=== PATIENT | female | born 1985 | race Caucasian/White ===

== ENCOUNTER 2017-05-30 21:53 | Emergency (ER) | payer SELFPAY ==
[2017-05-30 21:54] VITALS: BMI 27.6
[2017-05-31] MEDS ORDERED: Aspirin 325 mg EC Tablets PO STA (00:14)
[2017-05-31] MEDS ORDERED: Aspirin 325 mg EC Tablets PO ONE (00:29)
[2017-05-31 00:36] LABS: BASO % 0.5 % (0.0-2.0); EOS # 0.1 K/uL (0.0-0.7); EOS % 1.3 % (0.0-4.0); HEMATOCRIT 39.2 % (34.0-47.0); LYMPH % 23.9 % (20.0-40.0); MEAN CELL VOLUME 92.6 fL (81.0-99.0); MEAN CORPUSCULAR HEMOGLOBIN 31.2 pg (27.0-31.0); MEAN CORPUSCULAR HGB CONC 33.7 g/dL (33.0-37.0); MEAN PLATELET VOLUME 10.7 fL (7.2-11.7); MONO # 0.8 K/uL (0.0-0.8); MONO % 9.1 % (0.0-10.0); RED CELL DISTRIBUTION WIDTH 13.5 % (11.5-14.5); WHITE BLOOD COUNT 8.4 K/uL (4.8-10.8)
[2017-05-31 00:47] LABS: RBC URINE 2 /hpf (0-3); URINE BILIRUBIN NEGATIVE (NEGATIVE); URINE BLOOD TRACE (NEGATIVE); URINE COLOR Yellow (YELLOW); URINE GLUCOSE (UA) NORMAL (Normal); URINE KETONE NEGATIVE (NEGATIVE); URINE LEUKOCYTE ESTERASE TRACE Leu/uL (Negative); URINE PROTEIN NEGATIVE (NEGATIVE); URINE UROBILINOGEN NORMAL mg/dL (0.2-1.0); WBC URINE 1 /hpf (0-5)
[2017-05-31 00:58] VITALS: PULSE 68; RESP 18; O2SAT 100
[2017-05-31 01:06] LABS: ALB/GLOB RATIO 1.7 (1.0-2.1); ALKALINE PHOSPHATASE 62 U/L (38-126); ALT/SGPT 30 U/L (9-52); AST/SGOT 24 U/L (14-36); BILIRUBIN,TOTAL 0.7 mg/dL (0.2-1.3); BLOOD UREA NITROGEN 14 mg/dL (7-17); CALCIUM 9.3 mg/dl (8.6-10.4); CARBON DIOXIDE 25 mmol/L (22-30); CHLORIDE 100 mmol/L (98-107); GFR AFRICAN-AMERICAN > 60; GLUCOSE,RANDOM 77 mg/dL (65-105); POTASSIUM 3.5 mmol/L (3.6-5.2); SODIUM 136 mmol/L (132-148)
--- NOTE | 2017-05-31 01:36 | C.PDOC ---
History Of Present Illness 31 y/o female with a hx of Lupus and HTN (currently taking BP meds), c/o sharp left chest wall pain that began at 16:00 today. Pain is non-radiating but notes feeling the same pain at her back. Pain worsens when drinking water and deep breathing. In 2014, patient reports having DC like symptoms and was admitted with work up done. Her cardiac cath was normal. Denies SOB, dizziness, headache , lightheadedness, or lower leg swelling. Time Seen by Provider: 05/30/17 23:49 Chief Complaint (Nursing): Chest Pain History Per: Patient History/Exam Limitations: no limitations Onset/Duration Of Symptoms: Hrs Current Symptoms Are (Timing): Still Present Severity: Mild Quality: Sharp Exacerbating Factors: Deep Breathing, Other (Drinking water) Recent travel outside of the [place]: No Additional History Per: Patient Past Medical History Reviewed: Historical Data, Nursing Documentation, Vital Signs Vital Signs: Last Vital Signs Temp 97.5 F L 05/31/17 00:57 Pulse 68 05/31/17 00:57 Resp 18 05/31/17 00:57 BP 143/86 05/31/17 00:57 Pulse Ox 100 05/31/17 01:39 - Medical History PMH: HTN - [facility] CORONAR ARTERIOGR-2 CATH (11/15/14) LEFT HEART CARDIAC CATH (11/15/14) LT HEART ANGIOCARDIOGRAM (11/15/14) Family History: States: Hypertension (mother) - Social History Hx Tobacco Use: No Hx Alcohol Use: Yes (socially) Hx Substance Use: No - Immunization History Hx Tetanus Toxoid Vaccination: No Hx Influenza Vaccination: No Hx Pneumococcal Vaccination: No Review Of Systems Except As Marked, All Systems Reviewed And Found Negative. Constitutional: Negative for: Sweats Cardiovascular: Positive for: Chest Pain. Negative for: Palpitations, Light Headedness Respiratory: Negative for: Shortness of Breath Musculoskeletal: Positive for: Back Pain. Negative for: Leg Pain, Foot Pain Neurological: Negative for: Headache, Dizziness Physical Exam - Physical Exam Appears: Non-toxic, No Acute Distress Skin: Warm, Dry Head: Atraumatic, Normacephalic Chest: Symmetrical, Tenderness (Reproducible mid-sternal chest pain, intercostal ) Cardiovascular: Rhythm Regular, No Murmur Respiratory: Normal Breath Sounds, No Rales, No Rhonchi, No Wheezing Gastrointestinal/Abdominal: Soft, No Tenderness Back: Paraspinal Tenderness (Posterior clavicular tenderness and muscle spasm) Neurological/Psych: Oriented x3 ED Course And Treatment - Laboratory Results Result Diagrams: 05/31/17 00:31 05/31/17 00:31 O2 Sat by Pulse Oximetry: 100 (RA) Pulse Ox Interpretation: Normal Medical Decision Making Medical Decision Making: Plans: * EKG * Blood labs * Ecotrin * IV fluids * UA Disposition Counseled Patient/Family Regarding: Studies Performed, Diagnosis, Need For Followup, Rx Given - Disposition Disposition: HOME/ ROUTINE Disposition Time: 02:04 Condition: STABLE Prescriptions: diaZEpam [Valium] 5 mg PO TID #6 tab Ibuprofen [Motrin] 600 mg PO TID #15 tab Instructions: Chest Wall Pain (ED) Forms: Gen Discharge Inst Azeri, [facility] (Azeri), Work Excuse - POA Present On Arrival: None - Clinical Impression Clinical Impression: Chest wall pain - Scribe Statement The provider has reviewed the documentation as recorded by the Scribjemima martines All medical record entries made by the Scribe were at my direction and personally dictated by me. I have reviewed the chart and agree that the record accurately reflects my personal performance of the history, physical exam, medical decision making, and the department course for this patient. I have also personally directed, reviewed, and agree with the discharge instructions and disposition.
[2017-05-31 02:31] VITALS: BP 138/89; TEMP 97.9
== END 2017-05-31 02:31 | disposition home or self-care (01) ==
LOC: C.ER 21:53
DX: R07.89 Other chest pain (principal)

== ENCOUNTER 2018-10-21 09:06 | Outpatient (CLI) | payer OTHER | END 2018-10-21 09:07 | disposition home or self-care (01) | LOC: C.LAB 09:06 | DX: D68.62 Lupus anticoagulant syndrome (principal) ==